=== PATIENT | female | born 1960 | race Caucasian/White ===

== ENCOUNTER 2019-10-05 21:50 | Emergency (ER) | payer BC ==
[2019-10-05 22:01] VITALS: BP 151/84; TEMP 97.2
[2019-10-05] MEDS ORDERED: LIDOCAINE 1% W/ EPINEPHRINE 20 ML VIAL INJ ONE (22:01)
[2019-10-05] MEDS ORDERED: TETANUS-DIPHTHERIA TOXOIDS (TD) SYG IM ONE (22:10)
--- NOTE | 2019-10-05 22:14 | ED.PDOC ---
History of Present Illness - General Time Seen by Provider: 10/05/19 22:10 Additional Information: Patient is a 58-year-old female who presents to the ED with chief complaint of fishhook caught in sole of left foot. Patient was [place] [employer] today and inadvertently stepped on a single killian of a 3 barbed fishhook approximately 2 hours prior to arrival. Patient has no other complaints or injury. Patient is unaware of her last tetanus shot. Pain is controlled when hook is not manipulated but has moderate to severe pain when hook is tugged on. - History of Present Illness Home Medications: Ambulatory Orders Ciprofloxacin HCl [Cipro] 500 mg PO BID #20 tab 10/05/19 Ibuprofen [Motrin] 600 mg PO Q6H PRN #20 tab 10/05/19 Review of Systems - Review of Systems Constitutional: States: no symptoms reported. Denies: chills, fever Respiratory: States: no symptoms reported. Denies: cough, short of breath Cardiology: States: no symptoms reported. Denies: chest pain, palpitations Musculoskeletal: States: see HPI All other Systems: Reviewed and Negative Past Medical History (General) - Patient Medical History Hx Seizures: No Hx Stroke: No Hx Dementia: No Hx Asthma: No Hx of COPD: No Hx Cardiac Disorders: No Hx Congestive Heart Failure: No Hx Pacemaker: No Hx Hypertension: No Hx Thyroid Disease: Yes Hx Diabetes: No Hx Gastroesophageal Reflux: No Hx Renal Disease: No Hx Cancer: No Hx of HIV: No Hx Hepatitis C: No Hx MRSA: No Surgical History: no surgical history - Vaccination History Hx Tetanus, Diphtheria Vaccination: No Hx Influenza Vaccination: No Hx Pneumococcal Vaccination: No - Social History Hx Tobacco Use: No Hx Chewing Tobacco Use: No Hx Alcohol Use: Yes Hx Substance Use: No Hx Substance Use Treatment: No Hx Depression: No Feels Threatened In Home Enviroment: No Feels Threatened In a Relationship: No Hx Physical Abuse: No Hx Emotional Abuse: No Hx Suspected Abuse: No Physical Exam - Physical Exam General Appearance: Alert, Comfortable, No apparent distress, Well Developed, Well Nourished Respiratory: no respiratory distress Extremity: other - Patient with single killian of a 3 barbed fishhook in the lateral aspect of the sole of her left foot. No peripheral erythema. Negative discharge. Moderate tenderness to palpation. Neurologic: alert, normal mood/affect Skin Exam: normal color, warm/dry Progress - Progress Progress: 10/05/19 22:17 Bonnie easily removed from foot. Tetanus shot given and will DC with prophylactic antibiotics. There is no indication for imaging today. Vital signs stable, patient is NAD and looks clinically well and I believe is safe for discharge with outpatient follow-up. Follow-up instructions, discharge instructions and return to ED precautions discussed with patient. Patient voices understanding and willingness to comply with instructions. All laboratory and radiographic results have been discussed with the patient, and all questions answered. Patient is happy with plan. Procedures - Foreign Body Removal Foreign Body Removal: fish hook Departure - Departure Clinical Impression: Foreign body in foot, left Qualifiers: Encounter type: initial encounter Qualified Code(s): S90.852A - Superficial foreign body, left foot, initial encounter Time of Disposition: 22:19 Disposition: Discharge to Home or Self Care Condition: Good Instructions: Removal of Foreign Body in Skin Referrals: TRISTAN QUINTERO MD [Active Staff] - 1-2 Weeks Prescriptions: Ciprofloxacin HCl [Cipro] 500 mg PO BID #20 tab Ibuprofen [Motrin] 600 mg PO Q6H PRN #20 tab PRN Reason: Pain Home Medications: Ambulatory Orders Ciprofloxacin HCl [Cipro] 500 mg PO BID #20 tab 10/05/19 Ibuprofen [Motrin] 600 mg PO Q6H PRN #20 tab 10/05/19 Additional Instructions: Keep the hook site clean and dry. After a day you may go back in the water. If you experience any swelling, pain, redness or discharge please return to the emergency department for reevaluation. Take the prescribed antibiotics as directed to prevent infection.
[2019-10-06 02:09] VITALS: O2SAT 98
== END 2019-10-05 22:18 | disposition home or self-care (01) ==
LOC: ER 21:50
DX: S90.852A Superficial foreign body, left foot, initial encounter (principal); W26.8XXA Contact with other sharp object(s), not elsewhere classified, initial encounter; Y92.828 Other wilderness area as the place of occurrence of the external cause